=== PATIENT | male | born 1965 | race Two or more races ===

== ENCOUNTER 2023-10-27 18:01 | Emergency (ER) | payer OTHER ==
[~2023-10-27] VITALS: Ht 167.6 cm; Wt 94.5 kg
[2023-10-27 18:45] VITALS: PULSE 76; RESP 12; O2SAT 94
[2023-10-27] MEDS: SODIUM CHLORIDE 0.9% 1,000 ML IV ONE ×2 (18:45→20:28)
[2023-10-27 19:21] LABS: Basophils # (auto) 0.1 10 ^3/uL (0-0.2); Eosinophils # (auto) 0.1 10 ^3/uL (0-0.8); Eosinophils % (auto) 2.1 % (0.0-7.0); Hematocrit 49.4 % (41.0-53.0); Hemoglobin 16.7 g/dL (13.5-17.5); Lymphocytes # (auto) 0.9 10 ^3/uL (0.4-5.4); Lymphocytes % (auto) 14.4 % (10.0-50.0); Mean Corpuscular Hemoglobin 28.4 pg (28.0-32.0); Mean Corpuscular Hgb Conc. 33.8 g/dL (32.0-36.0); Mean Corpuscular Volume 84.1 fL (80.0-100.0); Monocytes # (auto) 0.6 10 ^3/uL (0-1.3); Monocytes % (auto) 9.7 % (0.0-12.0); Neutrophils # (auto) 4.4 10 ^3/uL (1.6-8.6); Neutrophils % (auto) 72.8 % (37.0-80.0); Nucleated Red Blood Cells % 0.5 %; Red Blood Cells 5.87 10^6/uL (4.5-5.90); Red Cell Distribution Width 13.5 % (11.8-14.3)
[2023-10-27 19:23] LABS: Urine Bacteria None Seen /hpf (None Seen); Urine WBC None Seen /hpf (0 - 3)
[2023-10-27 19:35] LABS: Alanine Aminotransferase 35 U/L (7-40); Alkaline Phosphatase 107 U/L (46-116); Anion Gap 7 (5-15); Blood Urea Nitrogen 14 mg/dL (9-23); Calcium 9.9 mg/dL (8.5-10.1); Carbon Dioxide 25 mmol/L (20-30); Chloride 101 mmol/L (98-107); Potassium 4.3 mmol/L (3.5-5.1); Sodium 133 mmol/L (136-145)
[2023-10-27 19:36] LABS: Albumin 4.6 g/dL (3.2-4.8); Aspartate Aminotransferase 16 U/L (13-40); Bilirubin, Total 0.4 mg/dL (0.2-1.0); Total Protein 6.7 g/dL (5.7-8.2)
[2023-10-27 19:44] LABS: Glucose 455 mg/dL (74-106)
[2023-10-27 19:44] LABS: Lactic Acid w/Reflex 2.2 mmol/L (0.4-2.0)
[2023-10-27] MEDS: InsuLIN REG 1unit/0.01ml Soln (100units/ml) IV ONE (19:49)
[2023-10-27 19:50] LABS: Urine Blood Negative /uL (Negative); Urine Clarity Clear (Clear); Urine Color Colorless (Yellow); Urine Protein, UAD Negative (Negative); Urine Specific Gravity 1.035 (1.001-1.035); Urine Urobilinogen Normal (Negative)
[2023-10-27 20:05] VITALS: PULSE 69; RESP 12; O2SAT 94
[2023-10-27 21:52] VITALS: BP 125/71; PULSE 67; RESP 19; TEMP 97.4; O2SAT 93
== END 2023-10-27 22:12 | disposition home or self-care (01) ==
LOC: ER 18:01
DX: E11.65 Type 2 diabetes mellitus with hyperglycemia (principal); Z91.148 Patient's other noncompliance with medication regimen for other reason
CPT/HCPCS: 36415; 80053; 81001; 82010; 83605; 83735; 85025; 96360; 96361; 99285; J1815; J7030